=== PATIENT | male | born 1970 | race Caucasian/White ===

== ENCOUNTER 2018-05-18 21:12 | Emergency (ER) | payer OTHER ==
[2018-05-18 21:42] LABS: BILIRUBIN,URINE NEGATIVE (NEGATIVE); CLARITY,URINE CLEAR (CLEAR); GLUCOSE, URINE (UA) NEGATIVE (NEGATIVE); KETONES,URINE (UA) TRACE mg/dL (NEGATIVE); LEUKOCYTE ESTERASE, URINE NEGATIVE (NEGATIVE); NITRITE,URINE NEGATIVE (NEGATIVE); OCCULT BLOOD,URINE NEGATIVE (NEGATIVE); PROTEIN,URINE NEGATIVE (NEGATIVE); UROBILINOGEN,URINE 0.2 (NORMAL) E.U./dL (NORMAL)
[2018-05-18] MEDS ORDERED: SODIUM CHLORIDE 0.9% 1,000 ML IV ONE (22:11)
[2018-05-18 22:21] LABS: BASOPHILS # (AUTO) 0.1 10^3/uL (0.0-0.1); BASOPHILS % (AUTO) 1.2 %; EOSINOPHILS # (AUTO) 0.1 10^3/uL (0.0-0.7); EOSINOPHILS % (AUTO) 2.7 %; HGB - HEMOGLOBIN 14.6 g/dL (14.0-18.0); LYMPHOCYTES # (AUTO) 1.7 10^3/uL (1.5-3.5); LYMPHOCYTES % (AUTO) 32.8 %; MEAN CORPUSCULAR HEMOGLOBIN 31.3 pg (27.0-31.0); MEAN CORPUSCULAR HGB CONC 34.3 g/dL (32.0-36.0); MEAN CORPUSCULAR VOLUME 91.3 fL (80.0-94.0); MEAN PLATELET VOLUME 6.9 fL (7.4-11.4); MONOCYTES # (AUTO) 0.4 10^3/uL (0.0-1.0); NEUTROPHILS # (AUTO) 2.9 10^3/uL (1.5-6.6); NEUTROPHILS % (AUTO) 56.3 %; PLT - PLATELET COUNT 210 10^3/uL (130-450); RED BLOOD COUNT 4.65 10^6/uL (4.70-6.10); RED CELL DISTRIBUTION WIDTH 13.2 % (12.0-15.0); WHITE BLOOD COUNT 5.2 x10^3/uL (4.8-10.8)
[2018-05-18] MEDS ORDERED: IOPAMIDOL-300 100 ML VIAL ONE (22:28)
[2018-05-18 22:35] LABS: ALBUMIN 4.2 g/dL (3.2-5.5); ALBUMIN/GLOBULIN RATIO 1.7 (1.0-2.2); BILIRUBIN,TOTAL 0.8 mg/dL (0.2-1.0); CALCIUM 8.8 mg/dL (8.5-10.3); CREATININE 0.7 mg/dL (0.6-1.2); TOTAL PROTEIN 6.7 g/dL (6.7-8.2)
[2018-05-18] MEDS ORDERED: IOPAMIDOL-300 100 ML VIAL IVP ONE (23:17)
[2018-05-18 23:53] VITALS: BP 121/82
--- NOTE | 2018-05-18 23:56 | CT Report ---
Reason: RLW abdominal pain Procedure Date: 05/18/2018 Accession Number: [id number] / [id number] Procedure: CT - Abdomen/Pelvis W CPT Code: FULL RESULT: EXAM: CT ABDOMEN AND PELVIS EXAM DATE: 05/18/2018 11:18 PM. CLINICAL HISTORY: RLW abdominal pain. COMPARISONS: None. TECHNIQUE: Routine helical CT imaging was performed through the abdomen and pelvis. IV contrast: ISOVUE 300 100mL. Enteric contrast: No. Reconstructions: Coronal and sagittal. In accordance with CT protocol optimization, one or more of the following dose reduction techniques were utilized for this exam: automated exposure control, adjustment of mA and/or KV based on patient size, or use of iterative reconstructive technique. FINDINGS: Lung Bases: Unremarkable. Liver: Normal. No masses. Gallbladder/Bile Ducts: Unremarkable. Spleen: Normal. Pancreas: Normal. Adrenal Glands: Normal. Kidneys: Normal. No masses or hydronephrosis. Peritoneal Cavity/Bowel: Normal. No free fluid, free air or adenopathy. No masses or acute inflammatory process. The appendix is well visualized and normal. Pelvic Organs: Normal. The bladder and visualized pelvic organs are within normal limits. Vasculature: No aneurysms or other significant abnormality. Bones: Degenerative changes. Other: None. IMPRESSION: No evident etiology for patient's right-sided pain. Normal appendix. No nephrolithiasis or hydronephrosis. RADIA
--- NOTE | 2018-05-19 00:11 | ED Physician Documentation ---
PD HPI ABD PAIN - Stated complaint Stated Complaint: ABD PX - Chief complaint Chief Complaint: Abd Pain - History of Present Illness Timing - onset: How many days ago (2) Timing - duration: Days (2) Timing - details: Gradual onset Pain level max: 3 Pain level now: 3 Quality: Sharp Location: RLQ Radiation: No: Chest, , Lower back Improved by: No: Eating, Laying still Worsened by: No: Eating, Moving Associated symptoms: No: Fever, Nausea, Vomiting - Additional information Additional information: No scrotal or testicular pain. Review of Systems Ten Systems: 10 systems reviewed and negative Constitutional: reports: Reviewed and negative Eyes: reports: Reviewed and negative Ears: reports: Reviewed and negative Nose: reports: Reviewed and negative Throat: reports: Reviewed and negative Cardiac: reports: Reviewed and negative Respiratory: reports: Reviewed and negative GI: reports: Reviewed and negative : reports: Reviewed and negative Skin: reports: Reviewed and negative Musculoskeletal: reports: Reviewed and negative Neurologic: reports: Reviewed and negative Psychiatric: reports: Reviewed and negative Endocrine: reports: Reviewed and negative Immunocompromised: reports: Reviewed and negative PD PAST MEDICAL HISTORY - Past Medical History Past Medical History: No Other Past Medical History: Reviewed and not pertinent - Past Surgical History Past Surgical History: No Other past surgical history: Reviewed and not pertinent - Allergies Allergies/Adverse Reactions: Allergies Allergy/AdvReac Type Severity Reaction Status Date / Time No Known Drug Allergies Allergy Verified 05/18/18 21:22 - Social History Does the pt smoke?: Yes Smoking Status: Current every day smoker Does the pt drink ETOH?: No Does the pt have substance abuse?: No - Family History Family history: reports: Other (Reviewed and not pertinent) PD ED PE NORMAL - Vitals Vital signs reviewed: Yes - General General: Alert and oriented X 3, No acute distress - HEENT HEENT: PERRL - Neck Neck: Supple, no meningeal sign - Cardiac Cardiac: RRR, No murmur - Respiratory Respiratory: Clear bilaterally - Abdomen Abdomen: Normal bowel sounds, Soft, Non distended, Other (Right lower quadrant tenderness) - Derm Derm: Warm and dry - Extremities Extremities: No deformity - Neuro Neuro: Alert and oriented X 3 - Psych Psych: Normal mood, Normal affect Results - Vitals Vitals: Vital Signs - 24 hr 05/18/18 05/18/18 05/19/18 21:16 23:52 00:12 Temperature 36.4 C L 36.6 C Heart Rate 64 62 Respiratory 17 16 Rate Blood Pressure 138/83 H 121/82 H O2 Saturation 97 95 Oxygen O2 Source Room air - Labs Labs: Laboratory Tests 05/18/18 05/18/18 05/18/18 21:35 22:16 22:16 WBC 5.2 RBC 4.65 L Hgb 14.6 Hct 42.5 MCV 91.3 MCH 31.3 H MCHC 34.3 RDW 13.2 Plt Count 210 MPV 6.9 L Neut # (Auto) 2.9 Lymph # (Auto) 1.7 [place] # (Auto) 0.4 Eos # (Auto) 0.1 Baso # (Auto) 0.1 Absolute Nucleated RBC 0.00 Nucleated RBC % 0.1 Sodium 137 Potassium 3.9 Chloride 102 Carbon Dioxide 26 Anion Gap 9.0 BUN 23 H Creatinine 0.7 Estimated GFR (MDRD) 122 Glucose 103 H Calcium 8.8 Total Bilirubin 0.8 AST 26 ALT 30 Alkaline Phosphatase 33 L Total Protein 6.7 Albumin 4.2 Globulin 2.5 Albumin/Globulin Ratio 1.7 Lipase 32 Urine Color YELLOW Urine Clarity CLEAR Urine pH 7.0 Ur Specific [place] 1.010 Urine Protein NEGATIVE Urine Glucose (UA) NEGATIVE Urine Ketones TRACE Urine Occult Blood NEGATIVE Urine Nitrite NEGATIVE Urine Bilirubin NEGATIVE Urine Urobilinogen 0.2 (NORMAL) Ur Leukocyte Esterase NEGATIVE Ur Microscopic Review NOT INDICATED Urine Culture Comments NOT INDICATED - Rads (name of study) Abdominal CT with contrast Radiology: Final report received, Other (Normal) PD MEDICAL DECISION MAKING - ED course Complexity details: reviewed results, re-evaluated patient, considered differential, d/w patient, d/w family ED course: 47-year-old male with right lower quadrant abdominal pain. Unremarkable labs and CT scan. Unremarkable physical exam. Patient without any testicular symptoms. Return precautions were reviewed as no acute etiology of patient's abdominal pain has yet been identified. Departure - Departure Disposition: 01 Home, Self Care Clinical Impression: Right lower quadrant abdominal pain Condition: Stable Instructions: Abdominal Pain, ED Abdominal Pain Unkn Cause Follow-Up: BRIDGET ROBERTSON [Primary Care Provider] - Comments: Follow-up with PCP within 24 hours. Return with worsening symptoms. No cause has been identified for your abdominal pain so if symptoms change or worsen please return for reevaluation. Discharge Date/Time: 05/19/18 00:31
== END 2018-05-19 00:31 | disposition home or self-care (01) ==
LOC: ED 21:12
DX: R10.31 Right lower quadrant pain (principal); F17.200 Nicotine dependence, unspecified, uncomplicated
CPT/HCPCS: 36415; 74177; 80053; 81001; 81003; 83690; 85025; 87086; 96360; 99283

== ENCOUNTER 2018-08-05 17:56 | Emergency (ER) | payer OTHER ==
[2018-08-05] MEDS ORDERED: cephALEXin 250 MG CAPSULE PO STA (18:29)
[2018-08-05] MEDS ORDERED: SULFAMETH/TRIMETH DS 800/160 MG TABLET PO STA (18:29)
--- NOTE | 2018-08-05 18:30 | ED Physician Documentation ---
PD HPI UPPER EXT INJURY - Stated complaint Stated Complaint: LT RING FINGER SWELLING - Chief complaint Chief Complaint: Ext Problem - History obtained from History obtained from: Patient - History of Present Illness Location: Left, Finger (ring) Type of injury: No: Blunt / blow, Puncture wound (He is not aware of a particular injury. He was doing yard work on Friday but did not feel any particular injury or puncture. He noted swelling of the left ring finger starting 2 to 3 days ago and has progressed slowly. He did develop a small sore on the palmar aspect. He states it is draining a little bit of clear fluid and slight purulence. The swelling is increasing however in the finger at the middle and distal phalanx. He denies any pain into the palm. There is no fever or chills.) Where injury occurred: Home Timing - onset: How many days ago (2-3) Timing - duration: Days (2-3) Timing - details: Gradual onset, Still present Worsened by: Moving, Palpating Associated symptoms: Numbness (at tip, around the area of swelling.), Swelling, Discolored (redness). No: Weakness Similar symptoms before: Has not had sx before Recently seen: Not recently seen Review of Systems Constitutional: denies: Fever, Chills Skin: denies: Laceration (s) Neurologic: denies: Focal weakness PD PAST MEDICAL HISTORY - Past Medical History Cardiovascular: None Respiratory: None Neuro: None Endocrine/Autoimmune: None - Past Surgical History Past Surgical History: No - Present Medications Home Medications: Ambulatory Orders Medication Instructions Recorded Confirmed Cephalexin [Keflex] 500 mg PO TID #15 capsule 08/05/18 Escitalopram [Lexapro] 10 mg PO DAILY 08/05/18 08/05/18 Hydrocodone/Acetaminophen [[place] 1 each PO Q6H PRN #12 tablet 08/05/18 5-325 Tablet] Naproxen 500 mg PO BID #20 tablet 08/05/18 Sulfamethox/Trimeth 800/160 1 each PO BID #14 tablet 08/05/18 [Bactrim Ds 800/160] - Allergies Allergies/Adverse Reactions: Allergies Allergy/AdvReac Type Severity Reaction Status Date / Time No Known Drug Allergies Allergy Verified 08/05/18 18:02 - Social History Does the pt smoke?: Yes Smoking Status: Current every day smoker Does the pt drink ETOH?: No Does the pt have substance abuse?: No PD ED PE NORMAL - Vitals Vital signs reviewed: Yes - General General: Alert and oriented X 3, Well developed/nourished - Derm Derm: Normal color, Warm and dry - Extremities Extremities: Other (Left ring finger has redness swelling and a small 2 mm ulceration on the palmar aspect of the distal phalanx fat pad. There is no paronychial changes. The redness and swelling does extend just to the end of the middle phalanx. There is no redness or tenderness into the proximal finger not the palm. He has good color and capillary refill at the tip of the finger.) - Neuro Neuro: Alert and oriented X 3, No motor deficit, No sensory deficit, Normal spe ech Results - Vitals Vitals: Vital Signs - 24 hr 08/05/18 08/05/18 18:01 19:42 Temperature 36.4 C L Heart Rate 86 64 Respiratory 20 20 Rate Blood Pressure 139/85 H 122/79 O2 Saturation 97 97 Oxygen O2 Source Room air - Rads (name of study) ring finger Radiology: Prelim report reviewed (no fracture; soft tissue swelling), EMP read contemporaneously (I see a small linear metallic appearing density in 2 views. Just distal to the DIP joint palmar aspect, which is right below skin wound. ), See rad report Procedures - General procedure General procedure: Digital block with lido 2% with good effect. Scalpel used to make 1 cm incision in skin vertically at proximal portion of distal phalaxe, overlying the wound and point of most swelling. 2 drops of pus did come out as I incised to below the skin. Elastic band used with snaps at base of finger to decrease bleeding for visualization. No FB could be felt nor seen, even with gentle slow blunt dissection, being sure to stay above tendons and mainly stay midline where the FB was noted. I could not find a FB. Will treat for the infection, did get some pus out of the wound. To then see if finger tender/etc, to f/u with PMD if stays tender. PD MEDICAL DECISION MAKING - ED course Complexity details: considered differential (He has been working in the garage and also in the yard. Consider the possibility of a venomous reaction from a spider. However more likely to be an infectious process. He is not aware of a foreign body per se but we will get an x-ray to see if there is any obvious foreign body. Otherwise consider likely a inadvertent small puncture wound or such with now development of infection. He was not working with [employer] the or [employer] plants per se. We will treat primarily for staph type infection given the appearance of it.), d/w patient Departure - Departure Disposition: 01 Home, Self Care Clinical Impression: Felon of finger of left hand Condition: Stable Record reviewed to determine appropriate education?: Yes Instructions: ED Staph Infec Abx Tx Only Follow-Up: BRIDGET ROBERTSON [Primary Care Provider] - Prescriptions: Cephalexin [Keflex] 500 mg PO TID #15 capsule Hydrocodone/Acetaminophen [[place] 5-325 Tablet] 1 each PO Q6H PRN #12 tablet PRN Reason: Pain Naproxen 500 mg PO BID #20 tablet Sulfamethox/Trimeth 800/160 [Bactrim Ds 800/160] 1 each PO BID #14 tablet Comments: I could not find a small foreign body there. Did not want to did get the area more than I had at this point. The important part will be for the infection to go away. Use antibiotics as directed. Add anti-inflammatories twice daily. Use pain medicine if needed. Soak the finger 2-3 times a day over the next couple of days. Follow-up with your primary care or back with us in a couple of days. Return if worsening during that time, in particular with feeling extension into the hand or palm. Discharge Date/Time: 08/05/18 19:43
[2018-08-05] MEDS ORDERED: IBUPROFEN 600 MG TABLET PO STA (18:46)
[2018-08-05] MEDS ORDERED: HYDROcod/ACETAM 5/325 MG TABLET PO STA (18:46)
[2018-08-05] MEDS ORDERED: LIDOCAINE 2% 10 ML MDV SUBQ STA (18:49)
--- NOTE | 2018-08-05 18:49 | XRAY Report ---
Reason: ring finger red and swelling: eval for FB Procedure Date: 08/05/2018 Accession Number: [id number] / [id number] Procedure: XR - Finger(s) LT CPT Code: FULL RESULT: EXAM: RIGHT/LEFT 1st/2nd/3rd/4th/5th DIGIT RADIOGRAPHY EXAM DATE: 08/05/2018 06:41 PM. CLINICAL HISTORY: Ring finger red and swelling: eval for FB. COMPARISON: None. TECHNIQUE: 3 views. FINDINGS: Bones: Normal. No fracture or bone lesion. Joints: Normal. No subluxations. Soft Tissues: Normal. No soft tissue swelling. IMPRESSION: Normal digit radiography. RADIA
[2018-08-05 19:44] VITALS: BP 122/79
== END 2018-08-05 19:43 | disposition home or self-care (01) ==
LOC: ED 17:56
DX: L03.012 Cellulitis of left finger (principal); F17.200 Nicotine dependence, unspecified, uncomplicated
CPT/HCPCS: 26011; 73140; 99283; A9270

== ENCOUNTER 2021-02-12 15:32 | Emergency (ER) | payer OTHER ==
[2021-02-12 16:03] LABS: BILIRUBIN,URINE NEGATIVE (NEGATIVE); GLUCOSE, URINE (UA) NEGATIVE (NEGATIVE); KETONES,URINE (UA) 15 mg/dL (NEGATIVE); LEUKOCYTE ESTERASE, URINE NEGATIVE (NEGATIVE); NITRITE,URINE NEGATIVE (NEGATIVE); OCCULT BLOOD,URINE NEGATIVE (NEGATIVE); PH,URINE 5.5 PH (5.0-7.5); PROTEIN,URINE NEGATIVE (NEGATIVE); UROBILINOGEN,URINE 0.2 (NORMAL) E.U./dL (NORMAL)
[2021-02-12 16:04] LABS: CLARITY,URINE CLEAR (CLEAR)
[2021-02-12 16:10] LABS: BASOPHILS % (AUTO) 0.5 %; EOSINOPHILS # (AUTO) 0.1 10^3/uL (0.0-0.7); EOSINOPHILS % (AUTO) 0.9 %; HCT - HEMATOCRIT 49.1 % (42.0-52.0); HGB - HEMOGLOBIN 17.5 g/dL (14.0-18.0); LYMPHOCYTES # (AUTO) 1.6 10^3/uL (1.5-3.5); LYMPHOCYTES % (AUTO) 18.2 %; MEAN CORPUSCULAR HEMOGLOBIN 31.4 pg (27.0-31.0); MEAN CORPUSCULAR HGB CONC 35.6 g/dL (32.0-36.0); MEAN PLATELET VOLUME 8.9 fL (7.4-11.4); MONOCYTES # (AUTO) 0.4 10^3/uL (0.0-1.0); MONOCYTES % (AUTO) 4.5 %; NEUTROPHILS # (AUTO) 6.7 10^3/uL (1.5-6.6); NEUTROPHILS % (AUTO) 75.6 %; PLT - PLATELET COUNT 213 10^3/uL (130-450); RED BLOOD COUNT 5.58 10^6/uL (4.70-6.10); RED CELL DISTRIBUTION WIDTH 12.2 % (12.0-15.0); WHITE BLOOD COUNT 8.8 x10^3/uL (4.8-10.8)
[2021-02-12 16:23] LABS: ALBUMIN/GLOBULIN RATIO 1.6 (1.0-2.2); BILIRUBIN,TOTAL 0.8 mg/dL (0.2-1.0); CALCIUM 9.4 mg/dL (8.5-10.3); CREATININE 0.9 mg/dL (0.6-1.2); POTASSIUM 4.1 mmol/L (3.5-5.0); TOTAL PROTEIN 8.1 g/dL (6.7-8.2)
--- NOTE | 2021-02-12 16:46 | ED Physician Documentation ---
History of Present Illness - Stated complaint Stated Complaint: RIGHT SIDE PX - Chief complaint Chief Complaint: Abd Pain - Additonal information Additional information: 50-year-old male presents emergency department for evaluation of 2 days focal but nonradiating right lower quadrant abdominal pain. No fevers or vomiting. No diarrhea dysuria urgency or frequency. No testicular pain. No history of similar. His is concerned he could have appendicitis. However this patient reports that over the weekend he has been installing a new driveway and tossing bags of concrete and gravel. However he has pain in no other portion of his abdomen other than the right lower quadrant. No pertinent past surgical or medical history. Review of Systems Constitutional: reports: Reviewed and negative Ears: reports: Reviewed and negative Nose: reports: Reviewed and negative Throat: reports: Reviewed and negative Cardiac: reports: Reviewed and negative Respiratory: reports: Reviewed and negative GI: reports: Abdominal Pain. denies: Nausea, Vomiting, Constipation, Diarrhea : reports: Reviewed and negative Skin: reports: Reviewed and negative Musculoskeletal: reports: Reviewed and negative PD PAST MEDICAL HISTORY - Past Medical History Cardiovascular: None Respiratory: None Neuro: None Endocrine/Autoimmune: None - Past Surgical History Past Surgical History: No - Present Medications Home Medications: Ambulatory Orders Medication Instructions Recorded Confirmed No Known Home Medications 02/12/21 02/12/21 - Allergies Allergies/Adverse Reactions: Allergies Allergy/AdvReac Type Severity Reaction Status Date / Time No Known Drug Allergies Allergy Verified 02/12/21 15:51 - Social History Does the pt smoke?: Yes Smoking Status: Current every day smoker Does the pt drink ETOH?: No Does the pt have substance abuse?: No PD ED PE NORMAL - General General: Alert and oriented X 3, No acute distress - HEENT HEENT: PERRL - Cardiac Cardiac: RRR, No murmur - Respiratory Respiratory: Clear bilaterally - Abdomen Abdomen: Normal bowel sounds, Soft, Non tender, Non distended - Back Back: No CVA TTP, No spinal TTP - Derm Derm: Normal color, Warm and dry, No rash - Extremities Extremities: No deformity - Neuro Neuro: Alert and oriented X 3 Eye Opening: Spontaneous Motor: Obeys Commands Verbal: Oriented GCS Score: 15 Results - Vitals Vitals: Vital Signs - 24 hr 02/12/21 15:48 Temperature 37.2 C Heart Rate 75 Respiratory 18 Rate Blood Pressure 137/87 H O2 Saturation 97 Oxygen O2 Source Room air - Labs Labs: Laboratory Tests 02/12/21 02/12/21 02/12/21 15:58 16:06 16:06 WBC 8.8 RBC 5.58 Hgb 17.5 Hct 49.1 MCV 88.0 MCH 31.4 H MCHC 35.6 RDW 12.2 Plt Count 213 MPV 8.9 Neut # (Auto) 6.7 H Lymph # (Auto) 1.6 [place] # (Auto) 0.4 Eos # (Auto) 0.1 Baso # (Auto) 0.0 Absolute Nucleated RBC 0.00 Nucleated RBC % 0.0 Sodium 135 Potassium 4.1 Chloride 100 L Carbon Dioxide 25 Anion Gap 10.0 BUN 19 Creatinine 0.9 Estimated GFR (MDRD) 90 Glucose 77 Calcium 9.4 Total Bilirubin 0.8 AST 39 ALT 47 Alkaline Phosphatase 32 L Total Protein 8.1 Albumin 5.0 Globulin 3.1 Albumin/Globulin Ratio 1.6 Lipase 27 Urine Color YELLOW Urine Clarity CLEAR Urine pH 5.5 Ur Specific [place] >=1.030 H Urine Protein NEGATIVE Urine Glucose (UA) NEGATIVE Urine Ketones 15 H Urine Occult Blood NEGATIVE Urine Nitrite NEGATIVE Urine Bilirubin NEGATIVE Urine Urobilinogen 0.2 (NORMAL) Ur Leukocyte Esterase NEGATIVE Ur Microscopic Review NOT INDICATED Urine Culture Comments NOT INDICATED - Rads (name of study) CT abd Radiology: Final report received (No acute abdominal or pelvic abnormality. The appendix is normal.) PD MEDICAL DECISION MAKING - ED course Complexity details: reviewed results, re-evaluated patient, d/w patient ED course: 50-year-old male presents emergency department for evaluation of focal nonradiating right lower quadrant abdominal pain that began yesterday. Over the weekend he had been working on installing a new driveway and had been lifting heavy bags of concrete. He has had no fevers or vomiting. He has unremarkable CBC as well as electrolytes. He is focally tender in the right lower quadrant though without guarding or rebound. We discussed the possibility that this could be muscle tenderness given the heavy lifting over the weekend however he does not have pain on the left side which is something that he would expect. Therefore we proceeded with a CT of the abdomen and pelvis and fortunately no worrisome findings were found. Plan was discussed with the patient. He is to take ibuprofen or Tylenol for discomfort. Warm compress or cool compress whichever feels better. Emergent return precautions were discussed for worsening symptoms, fevers or vomiting Departure - Departure Disposition: 01 Home, Self Care Clinical Impression: RLQ abdominal pain Condition: Stable Record reviewed to determine appropriate education?: Yes Comments: Kyle you are seen in the emergency department today for pain in your right lower abdomen. Fortunately your screening labs as well as your CT are essentially unremarkable. As we discussed at the bedside I suspect that we have is a muscle strain or sprain from the heavy lifting this weekend. I recommend that you take Tylenol 500 mg or ibuprofen 600 mg with food 2-3 times a day for discomfort. You may find benefit in using a warm or cool compress, whichever feels better, over your abdomen where you are tender. If at any point you develop fevers, have suddenly severe or different pain, uncontrolled vomiting or develop black or bloody stools and please return immediately to the ER for second evaluation.
[2021-02-12] MEDS ORDERED: IOPAMIDOL-300 100 ML VIAL ONE (16:56)
--- NOTE | 2021-02-12 17:33 | CT Report ---
PROCEDURE: Abdomen/Pelvis W INDICATIONS: RLQ abd pain CONTRAST: IV CONTRAST: Isovue 300 ml: 100 PO CONTRAST: *NO PO CONTRAST TECHNIQUE: After the administration of contrast, 5 mm thick sections acquired from the diaphragms to the sym physis. 5 mm thick coronal and sagittal reformats were acquired. For radiation dose reduction, the following was used: automated exposure control, adjustment of mA and/or kV according to patient size . COMPARISON: None. FINDINGS: Image quality: Excellent. ABDOMEN: Lung bases: Lung bases are clear. Heart size is normal. Solid organs: Liver and spleen are normal in size and enhancement. Gallbladder is normal. Biliary system is non dilated. Pancreas enhances normally. No adrenal nodules. Kidneys demonstrate normal size and enhancement, without hydronephrosis. Peritoneum and bowel: Bowel loops demonstrate normal wall thickness and caliber. No free fluid or a ir. Nodes and vessels: No retroperitoneal or mesenteric adenopathy by size criteria. Aorta and inferior vena cava are normal in size. Miscellaneous: No ventral hernias. PELVIS: Genitourinary: Bladder wall thickness is normal. Miscellaneous: No inguinal hernias or adenopathy. Bones: L5 pars defect with grade 1 anterolisthesis. L5-S1 degenerative disc disease. No suspicious [place] lesions. No vertebral body compression fractures. IMPRESSION: No acute abdominal or pelvic abnormality. The appendix is normal. Reviewed by: Rodolfo Snyder on 02/12/2021 4:32 PM [facility] Approved by: Rodolfo Snyder on 02/12/2021 4:32 PM [facility] Station ID: [id number]
[2021-02-12 17:50] VITALS: BP 132/88
[2021-02-12] MEDS ORDERED: IOPAMIDOL-300 100 ML VIAL IVP ONE (22:11)
== END 2021-02-12 17:50 | disposition home or self-care (01) ==
LOC: ED 15:32
DX: R10.31 Right lower quadrant pain (principal); F17.200 Nicotine dependence, unspecified, uncomplicated
CPT/HCPCS: 36415; 74177; 80053; 81003; 83690; 85025; 99282; 99284; Q9967; 81001; 87086